=== PATIENT | male | born 2000 | race African-American/Black ===

== ENCOUNTER 2022-05-19 11:54 | Emergency (ER) | payer BC, MEDICAID ==
[~2022-05-19] VITALS: Ht 185.4 cm; Wt 68.0 kg
[2022-05-19 11:59] VITALS: BP 152/70
== END 2022-05-19 16:12 | disposition home or self-care (01) ==
LOC: ER 11:54
DX: T17.298A Other foreign object in pharynx causing other injury, initial encounter (principal); J02.9 Acute pharyngitis, unspecified; X58.XXXA Exposure to other specified factors, initial encounter; Y93.89 Activity, other specified; Y92.9 Unspecified place or not applicable
CPT/HCPCS: 70360; 71045; 99284